=== PATIENT | male | born 1960 | race Caucasian/White ===

== ENCOUNTER 2018-08-04 08:31 | Emergency (ER) | payer BC ==
[2018-08-04 09:19] VITALS: BP 136/90
--- NOTE | 2018-08-04 10:02 | UC ---
Lower Extremity/Ankle HPI - HPI Summary HPI Summary: 58 yo male with right little toe redness and pain x 1 week started after cutting nails no fever drained some pus no DM - History of Current Complaint Chief Complaint: UCLowerExtremity Stated Complaint: RT PINKY TOE COMPLAINT Time Seen by Provider: 08/04/18 09:49 Hx Obtained From: Patient Onset/Duration: Gradual Onset, Lasting Days Severity Initially: Mild Severity Currently: Mild Pain Intensity: 4 Pain Scale Used: 0-10 Numeric Aggravating Factor(s): Standing, Ambulation Alleviating Factor(s): Rest, Elevation, Other - warm soaks Able to Bear Weight: Yes Feet (Multiple View): 1 - red/swollen /no subungual pus - Allergies/Home Medications Allergies/Adverse Reactions: Allergies Allergy/AdvReac Type Severity Reaction Status Date / Time No Known Allergies Allergy Verified 08/04/18 09:16 Home Medications: Home Medications Ibuprofen TAB* [Motrin TAB* 600 MG] 600 mg PO Q6H PRN 08/04/18 [History Confirmed 08/04/18] PMH/Surg Hx/FS Hx/Imm Hx Previously Healthy: Yes Endocrine History: Diabetes - pre Cardiovascular History: Hypertension - pre - Surgical History Surgical History: Yes Surgery Procedure, Year, and Place: dental extractions - Family History Known Family History: Positive: Hypertension, Diabetes - Social History Alcohol Use: Weekly Alcohol Amount: weekends Substance Use Type: None Smoking Status (MU): Never Smoked Tobacco - Immunization History Most Recent Influenza Vaccination: 2013 Review of Systems All Other Systems Reviewed And Are Negative: Yes Constitutional: Positive: Negative Skin: Positive: Negative Eyes: Positive: Negative ENT: Positive: Negative Respiratory: Positive: Negative Cardiovascular: Positive: Negative Gastrointestinal: Positive: Negative Genitourinary: Positive: Negative Motor: Positive: Negative Neurovascular: Positive: Negative Musculoskeletal: Positive: Negative Neurological: Positive: Negative Psychological: Positive: Negative Physical Exam Triage Information Reviewed: Yes Appearance: Well-Appearing, No Pain Distress, Well-Nourished Vital Signs: Initial Vital Signs Temp 97.9 F 08/04/18 09:13 Pulse 83 08/04/18 09:13 Resp 15 08/04/18 09:13 BP 136/90 08/04/18 09:13 Pulse Ox 99 08/04/18 09:13 Vital Signs Reviewed: Yes Eyes: Positive: Conjunctiva Clear ENT: Positive: Hearing grossly normal. Negative: Nasal congestion, Nasal drainage, Trismus, Muffled voice, Hoarse voice Neck: Positive: Supple, Nontender Respiratory: Positive: Lungs clear, Normal breath sounds, No respiratory distress, No accessory muscle use Cardiovascular: Positive: RRR, No Murmur Musculoskeletal: Positive: ROM Intact, No Edema, Other: - see image Neurological: Positive: Alert Psychological Exam: Normal Skin Exam: Other - see image Lower Extremity Course/Dx - Course Course Of Treatment: DX: CELLULITIS OF RIGHT LITTLE TOE - Differential Dx/Diagnosis Provider Diagnosis: Cellulitis Discharge - Sign-Out/Discharge Documenting (check all that apply): Patient Departure All imaging exams completed and their final reports reviewed: No Studies - Discharge Plan Condition: Stable Disposition: HOME Prescriptions: Cephalexin CAP* [Keflex CAP*] 500 mg PO QID #28 cap Patient Education Materials: Cellulitis (ED) Referrals: Arcenio Kenney MD [Primary Care Provider] - If Needed Additional Instructions: if not improving in 48 hours give your warp dyeing vat tender a call - Billing Disposition and Condition Condition: STABLE Disposition: Home
== END 2018-08-04 10:06 | disposition home or self-care (01) ==
LOC: UCCORT 08:31
DX: L03.031 Cellulitis of right toe (principal); I10 Essential (primary) hypertension; E11.9 Type 2 diabetes mellitus without complications
CPT/HCPCS: 99212; G0463

== ENCOUNTER 2019-02-24 07:20 | Emergency (ER) | payer BC ==
[2019-02-24 07:51] VITALS: BP 117/93
[2019-02-24] MEDS ORDERED: DOXYcycline CAP(*) 100 MG PO ONE (08:25)
--- NOTE | 2019-02-24 08:30 | ED ---
Skin Complaint - HPI Summary HPI Summary: 58 yr old male with the complaint of tick bite. The [place], and late last night he found a tick attached to the right lateral shoulder. It was not engorged. He states it was a deer tick. He pulled it off. He has some localized irritation. No other symptoms. - History of Current Complaint Chief Complaint: UCSkin Time Seen by Provider: 02/24/19 07:58 Stated Complaint: TICK Pain Intensity: 0 - Allergy/Home Medications Allergies/Adverse Reactions: Allergies Allergy/AdvReac Type Severity Reaction Status Date / Time No Known Allergies Allergy Verified 02/24/19 07:52 Home Medications: Home Medications Lisinopril [Zestril 5 MG-] 5 mg PO DAILY 02/24/19 [History Confirmed 02/24/19] metFORMIN* [Glucophage 500 MG TAB *] 500 mg PO DAILY 02/24/19 [History Confirmed 02/24/19] PMH/Surg Hx/FS Hx/Imm Hx Endocrine/Hematology History: Reports: Hx Thyroid Disease Denies: Hx Diabetes Cardiovascular History: Reports: Hx Hypertension Respiratory History: Denies: Hx Asthma, Hx Chronic Obstructive Pulmonary Disease (COPD) GI History: Denies: Hx Ulcer - Surgical History Surgery Procedure, Year, and Place: dental extractions Infectious Disease History: No Infectious Disease History: Denies: Hx Clostridium Difficile, Hx Hepatitis, Hx Human Immunodeficiency Virus (HIV), Hx of Known/Suspected MRSA, Hx Shingles, Hx Tuberculosis, Hx Known/ Suspected VRE, Hx Known/Suspected VRSA, History Other Infectious Disease, Traveled Outside the in Last 30 Days - Family History Known Family History: Positive: Hypertension, Diabetes - Social History Alcohol Use: Weekly Alcohol Amount: weekends Substance Use Type: Reports: None Smoking Status (MU): Never Smoked Tobacco Review of Systems Constitutional: Negative Positive: Other - tick bite All Other Systems Reviewed And Are Negative: Yes Physical Exam Triage Information Reviewed: Yes Vital Signs On Initial Exam: Initial Vitals Temp Pulse Resp BP Pulse Ox 98.4 F 85 16 117/93 98 02/24/19 07:46 02/24/19 07:46 02/24/19 07:46 02/24/19 07:46 02/24/19 07:46 Vital Signs Reviewed: Yes Appearance: Positive: Well-Appearing, No Pain Distress Skin: Positive: Other - tick bite to the right shoulder, no residual foreign body seen. He has some redness to the area but less than 1 cm. No cellulitis, no bulls eye. Head/Face: Positive: Normal Head/Face Inspection Eyes: Positive: EOMI ENT: Positive: Normal ENT inspection Neck: Positive: Nontender Respiratory/Lung Sounds: Positive: Clear to Auscultation, Breath Sounds Present Cardiovascular: Positive: RRR. Negative: Murmur Abdomen Description: Negative: Distended Musculoskeletal: Positive: Strength/ROM Intact Neurological: Positive: Sensory/Motor Intact, Alert, Oriented to Person Place, Time, CN Intact II-III Psychiatric: Positive: Normal Diagnostics - Vital Signs Vital Signs Temp Pulse Resp BP Pulse Ox 02/24/19 07:46 98.4 F 85 16 117/93 98 - Laboratory Lab Statement: Any lab studies that have been ordered have been reviewed, and results considered in the medical decision making process. Course/Dx - Course Course Of Treatment: 58 yr old with tick bite. No residual FB seen. Not engorged and on his less than a day. Prophylax with 200 mg doxy once. - Diagnoses Provider Diagnoses: Tick bite of deltoid region Discharge ED - Sign-Out/Discharge Documenting (check all that apply): Patient Departure All imaging exams completed and their final reports reviewed: No Studies - Discharge Plan Condition: Good Disposition: HOME Patient Education Materials: Tick Bite (ED) Referrals: No Primary Care Phys,NOPCP [Primary Care Provider] - [facility] [place] [facility] [place] [facility] [place]] - Billing Disposition and Condition Condition: GOOD Disposition: Home
== END 2019-02-24 08:35 | disposition home or self-care (01) ==
LOC: UCCORT 07:20
DX: S40.261A Insect bite (nonvenomous) of right shoulder, initial encounter (principal); I10 Essential (primary) hypertension; W57.XXXA Bitten or stung by nonvenomous insect and other nonvenomous arthropods, initial encounter; Y92.9 Unspecified place or not applicable; Z79.899 Other long term (current) drug therapy
CPT/HCPCS: 99212; A9270-GY; G0463